=== PATIENT | female | born 1945 | race Caucasian/White ===

== ENCOUNTER 2016-12-06 15:36 | Emergency (ER) | payer OTHER ==
[2016-12-06 15:42] VITALS: BP 176/79; BMI 22.6
[2016-12-06] MEDS ORDERED: MORPHINE SULFATE INJ 4 MG ONE (16:44)
[2016-12-06] MEDS ORDERED: MORPHINE SULFATE INJ 4 MG IM ONE (16:44)
[2016-12-06] MEDS ORDERED: ZOFRAN TAB 4 MG PO ONE (17:01)
[2016-12-06] MEDS ORDERED: ZOFRAN INJ 4 MG VIAL ONE (17:01)
--- NOTE | 2016-12-06 17:02 | DR.GENAD ---
HPI - PCP Primary Care Physician: FIOR - Complaint/Symptoms Chief Complaint Doctors Comments: Patient states that the pain is 10, severe, worse with movement, occured today Chief Complaint:: "I FELL AT HOME AND I LANDED ON MY RIGHT KNEE" Self Treatment fo Chief Complaint: NONE - Source History Provided: Patient - Mode of Arrival Mode of Arrival: Wheelchair - Timing Onset of Chief Complaint: 12/06/16 PMH - PMH Past Medical History: Yes Past Medical History: Hypertension Past Medical History Comment: CHRONIC BACK PAIN Past Surgical History: Yes Surgical History: Cholecystectomy Past Surgical History Comment: TUBES TIED - Family History History of Family Medical Conditions: Yes Family Medical History: Cancer, Hypertension - Social History Does patient currently use any type of tobacco product: No Have you used tobacco products in the last 12 months: No Type of Tobacco Use: None Does any household member use tobacco: No Alcohol Use: None Do you use any recreational Drugs:: No Lives With: Alone Lives Where: Home - infectious screening In the last 2 months have you had wt loss of >10#?: NO Have you had fever, night sweats or hemotysis?: No Have you traveled outside the country in the last 6 months?: No ROS - Review of Systems Eyes: No Symptoms Reported ENTM: No Symptoms Reported Respiratoy: No Symptoms Reported Cardiovascular: No Symptoms Reported Gastrointestinal/Abdominal: No Symptoms Reported Genitourinary: No Symptoms Reported Neurological: No Symptoms Reported Musculoskeletal: No Symptoms Reported Integumentary: No Symptoms Reported Hematologic/Lymphatic: No Symptoms Reported Endocrine: No Symptoms Reported Psychiatric: No Symptoms Reported All Other Systems: Reviewed and Negative PE - Vital Signs Vitals: Temperature 98.2 F Pulse Rate 81 Respiratory Rate 18 Blood Pressure 176/79 O2 Sat by Pulse Oximetry 96 - General Limitations: No Limitations General Appearance: Alert, In No Apparent Distress - Head Head Exam: Normal Inspection, Atraumatic - Eyes Eye exam: Normal Appearance, PERRL, EOMI - ENT ENT Exam: Normal Exam External Ear Exam: Normal External Inspection TM/Canal Exam: Bilateral Normal Nose Exam: Normal Nose Exam Mouth Exam: Normal Inspection Throat Exam: Normal Inspection - Neck Neck Exam: Normal Inspection - Chest Chest Inspection: Normal Inspection - Respiratory Respiratory Exam: Normal Lung Sounds Bilat Respiratory Exam: Bilateral Clear to Auscultation - Cardiovascular Cardiovascular Exam: Regular Rate, Normal Rhythm - Abdominal Exam Abdominal Exam: Normal Inspection, Normal Bowel Sounds Abdominal Tenderness: negative: RUQ, RLQ, LUQ, LLQ, Epigastrium, Suprapubic, Diffuse, Mild, Moderate, Severe, Other - Extremities Extremities Exam: Normal Inspection - Back Back Exam: Normal Inspection, Full ROM Course - Treatment Treatment: Patient was evaluated by Dr Worley, discussed options, will see her in the officen and schedule for surgery . - Reevaluation 1st: Improved ROR - XRAY XRAY Interpreted by: Radiologist (Haseeb Villegas, distracted fracture of the right mid patella) - Diagnosis Discharge Problem: Patellar fracture Qualifiers: Encounter type: initial encounter Fracture type: closed Fracture morphology: transverse Fracture alignment: nondisplaced Laterality: right Qualified Code(s) : S82.034A - Nondisplaced transverse fracture of right patella, initial encounter for closed fracture - Discharge Plan Condition: Stable - Follow ups/Referrals Follow ups/Referrals: DEDE CHILDRESS [Primary Care Provider] - 3 days - Instructions
--- NOTE | 2016-12-06 17:37 | RAD ---
HISTORY: Fall, pain and edema of the right knee Study: Two-view right knee Comparison: No priors Findings: Transverse, distracted fracture of the mid patella is seen. There is a moderate suprapatellar joint e ffusion. The fracture appears closed. Degenerative changes are present with narrowing of the lateral joint space compartment and peaking of the tibial spines. Femur and the visualized tibia and fibula a ppear intact. IMPRESSION: Transverse, distracted fracture of the right mid patella. Reported By:
[2016-12-06] MEDS ORDERED: DILAUDID INJ IVP ONE (18:41)
[2016-12-06] MEDS ORDERED: DILAUDID INJ ONE (18:41)
[2016-12-06] MEDS ORDERED: NORCO 7.5/325 MG TAB PO ONE (20:09)
[2016-12-06] MEDS ORDERED: NORCO 7.5/325 MG TAB ONE (20:11)
== END 2016-12-06 20:14 | disposition home or self-care (01) ==
LOC: ER 15:51
DX: S82.034A Nondisplaced transverse fracture of right patella, initial encounter for closed fracture (principal); W19.XXXA Unspecified fall, initial encounter; Y92.009 Unspecified place in unspecified non-institutional (private) residence as the place of occurrence of the external cause
CPT/HCPCS: 73560; 96365; 96372; 96374; 96375; 99283; A4222; J2270; J2405